=== PATIENT | female | born 1995 | race Caucasian/White ===

== ENCOUNTER 2022-08-21 17:20 | Emergency (ER) | payer SELFPAY | END 2022-08-21 18:15 | disposition home or self-care (01) | LOC: CSHERS 17:20 | DX: J06.9 Acute upper respiratory infection, unspecified (principal); Z20.822 Contact with and (suspected) exposure to COVID-19 | CPT/HCPCS: 87804; 99283; U0003; U0005 ==

== ENCOUNTER 2022-10-14 12:52 | Emergency (ER) | payer OTHER, SELFPAY ==
[2022-10-14 13:41] LABS: ALT (SGPT) 22 U/L (8-55); Albumin 4.1 g/dL (3.5-5.0); Alkaline Phosphatase 109 U/L (40-110); Anion Gap 16 mmol/L (10-20); BUN (Urea Nitrogen) 11 mg/dL (7.0-18.7); Bilirubin, Total 0.3 mg/dL (0.2-1.2); Calc. Creatinine Clearance 0 mL/min (70-130); Calcium 9.4 mg/dL (7.8-10.44); Carbon Dioxide 21 mmol/L (22-29); Chloride 104 mmol/L (98-107); Estimated GFR 111; Globulin 4.7 g/dL (2.4-3.5); Glucose 124 mg/dL (70-105); Potassium 4.7 mmol/L (3.5-5.1); Protein, Total 8.8 g/dL (6.0-8.3); Sodium 136 mmol/L (136-145)
[2022-10-14] MEDS ORDERED: Ibuprofen 200 MG TAB ONE (13:42)
[2022-10-14 13:52] LABS: AST (SGOT) 27 U/L (5-34)
[2022-10-14 13:58] LABS: #Eosinphils 0.1 10x3/uL (0.0-0.5); #Monocytes 0.6 10x3/uL (0.0-1.1); #Neutrophils 5.9 10x3/uL (1.5-8.4); %Basophils 0.5 % (0.0-2.0); %Eosinophils 1.3 % (0.0-6.0); %Lymphocytes 19.8 % (18.0-47.0); %Monocytes 7.7 % (0.0-10.0); %Neutrophils 70.2 % (40.0-75.0); Mean Corpuscular HGB CONC 31.5 g/dL (32.0-36.0); Mean Corpuscular Hemoglobin 25.6 pg (27.0-33.0); Mean Corpuscular Volume 81.3 fl (81.6-98.3); Mean Platelet Volume 9.3 fl (7.4-10.4); Platelet Count 347 10x3/uL (150-450); RBC Distribution Width 14.5 % (11.5-14.5); Red Blood Cell (RBC) Count 5.08 10x6/uL (3.90-5.03); White Blood Cell (WBC) Count 8.3 10x3/uL (3.5-10.5)
[2022-10-14 14:15] LABS: Magnesium 1.8 mg/dL (1.6-2.6)
[2022-10-14 15:51] LABS: SARS-CoV-2 NAA Rapid Test Not Detected (NotDetected)
[2022-10-14] MEDS ORDERED: Dexamethasone 10 MG/ML VIAL ONE (16:09)
[2022-10-14] MEDS ORDERED: Ketorolac Tromethamine 30 MG/ML VIAL ONE (16:10)
[2022-10-14] MEDS ORDERED: diphenhydrAMINE 50 MG/ML VIAL ONE (16:10)
== END 2022-10-14 18:06 | disposition home or self-care (01) ==
LOC: CSHERS 12:52
DX: R55 Syncope and collapse (principal); J06.9 Acute upper respiratory infection, unspecified; Z20.822 Contact with and (suspected) exposure to COVID-19
CPT/HCPCS: 36415; 71045; 80053; 83735; 84484; 85025; 87081; 87430; 93005; 96361; 96374; 96375; J1100; J1200; J1885